=== PATIENT | female | born 1980 | race Caucasian/White ===

== ENCOUNTER 2017-04-05 15:33 | Emergency (ER) | payer MEDICAID ==
[2017-04-05 15:50] VITALS: BP 113/41; PULSE 72; RESP 18; TEMP 99.3; O2SAT 99
--- NOTE | 2017-04-05 16:14 | RAD ---
HISTORY: chest pain COMPARISON: Chest x-ray performed 12/26/15 TECHNIQUE: Chest PA and lateral FINDINGS: LUNGS: No focal consolidation. Please note that chest x-ray has limited sensitivity for the detection of pulmonary masses. PLEURA: No significant pleural effusion identified. No definite pneumothorax . CARDIOVASCULAR: The cardiomediastinal silhouette appears within normal limits of size. OSSEOUS STRUCTURES: No acute osseous abnormality identified. VISUALIZED UPPER ABDOMEN: Unremarkable. OTHER FINDINGS: None. IMPRESSION: No focal consolidation, significant pleural effusion, or definite pneumothorax identified.
--- NOTE | 2017-04-05 16:20 | C.PDOC ---
History Of Present Illness 36 y/o F c no PMHx p/w chest pain since last night. Describes as soreness in a focal area to the R parasternal area, pleuritic. She denies fever, cough, dyspnea, leg swelling, long travel, injury, nausea, vomiting. She had a similar pain and came to this ER in the past but never followed up. Time Seen by Provider: 04/05/17 15:44 Chief Complaint (Nursing): Chest Pain Past Medical History Vital Signs: Last Vital Signs Temp 99.3 F 04/05/17 15:38 Pulse 72 04/05/17 15:38 Resp 18 04/05/17 15:38 BP 113/41 L 04/05/17 15:38 Pulse Ox 99 04/05/17 16:24 Family History: States: Unknown Family Hx - Social History Hx Tobacco Use: Yes Hx Alcohol Use: Yes Hx Substance Use: No - Immunization History Hx Tetanus Toxoid Vaccination: No Hx Influenza Vaccination: Yes Hx Pneumococcal Vaccination: No Review Of Systems Except As Marked, All Systems Reviewed And Found Negative. Constitutional: Negative for: Fever Respiratory: Negative for: Shortness of Breath Physical Exam - Physical Exam Additional Physical Exam Comments: Constitutional: No acute distress. Head: Normocephalic. Atraumatic. Eyes: PERRL. ENT: Moist mucous membranes. Neck: Supple. Cardiovascular: Regular rate. Radial pulse 2+ bilaterally. Chest: Reproducible chest tenderness. Respiratory: Clear to auscultation bilaterally. GI: Soft. Nontender. Nondistended. Back: No CVA tenderness. Musculoskeletal: No tenderness or swelling of extremities. Skin: No rash. Neurologic: Alert, no focal deficit. ED Course And Treatment O2 Sat by Pulse Oximetry: 99 (RA) Pulse Ox Interpretation: Normal Medical Decision Making Medical Decision Making: EKG NSR 70 bpm, no ST/T wave changes, normal axis. CXR shows no pleural effusion, free air, infiltrate, or PTX. Discharged home, f/u PMD, return to ER for worsening pain, fever, dyspnea, or any other problem. Disposition - Disposition Disposition: HOME/ ROUTINE Disposition Time: 16:22 Condition: STABLE Prescriptions: Ibuprofen [Motrin] 1 tab PO Q6 #30 tab Instructions: Chest Wall Pain (ED) Forms: [employer] (T[place]isian) - Clinical Impression Clinical Impression: Pleuritic pain - Scribe Statement The provider has reviewed the documentation as recorded by the Daniel Solano All medical record entries made by the Daniel were at my direction and personally dictated by me. I have reviewed the chart and agree that the record accurately reflects my personal performance of the history, physical exam, medical decision making, and the department course for this patient. I have also personally directed, reviewed, and agree with the discharge instructions and disposition.
--- NOTE | 2017-04-09 18:22 | CARD ---
APPROVED REPORT EKG Measurement Heart [id number] <Conclusion> Normal sinus rhythm Normal ECG
== END 2017-04-05 16:39 | disposition home or self-care (01) ==
LOC: C.ER 15:33
DX: R07.81 Pleurodynia (principal)

== ENCOUNTER 2018-08-01 12:53 | Emergency (ER) | payer SELFPAY ==
[2018-08-01 13:19] VITALS: BMI 30.7
--- NOTE | 2018-08-01 14:24 | C.PDOC ---
History Of Present Illness 37 y/o female presents to ED with c/o sharp chest pain for "couple of days" and cough for 1 month. Patient denies recent travel, fever, chills, leg swelling or any other complaints at this time. Chief Complaint (Nursing): Chest Pain History/Exam Limitations: no limitations Onset/Duration Of Symptoms: Days Current Symptoms Are (Timing): Still Present Past Medical History Reviewed: Historical Data, Nursing Documentation, Vital Signs Vital Signs: Last Vital Signs Temp 98.5 F 08/01/18 13:18 Pulse 71 08/01/18 13:18 Resp 18 08/01/18 13:18 BP 120/79 08/01/18 13:18 Pulse Ox 97 08/01/18 13:18 - Medical History PMH: No Chronic Diseases Surgical History: No Surg Hx Family History: States: No Known Family Hx - Social History Hx Tobacco Use: Yes Hx Alcohol Use: No Hx Substance Use: No - Immunization History Hx Tetanus Toxoid Vaccination: No Hx Influenza Vaccination: No Hx Pneumococcal Vaccination: No Review Of Systems Constitutional: Negative for: Fever, Chills Cardiovascular: Positive for: Chest Pain. Negative for: Palpitations Respiratory: Positive for: Cough. Negative for: Shortness of Breath Gastrointestinal: Negative for: Nausea, Vomiting Skin: Negative for: Rash Physical Exam - Physical Exam Appears: Non-toxic, No Acute Distress Skin: Warm, Dry, No Rash Head: Atraumatic, Normacephalic Eye(s): bilateral: Normal Inspection Oral Mucosa: Moist Throat: Normal, No Erythema, No Exudate Neck: Normal ROM, Supple Cardiovascular: Rhythm Regular Respiratory: Normal Breath Sounds, No Rales, No Rhonchi, No Wheezing Gastrointestinal/Abdominal: Soft, No Tenderness, No Guarding, No Rebound Extremity: Normal ROM, No Pedal Edema, Capillary Refill (<2 seconds) Neurological/Psych: Oriented x3, Normal Speech, Normal Cognition ED Course And Treatment - Laboratory Results Result Diagrams: 08/01/18 15:03 08/01/18 15:03 O2 Sat by Pulse Oximetry: 97 (RA) Pulse Ox Interpretation: Normal Disposition - Disposition Referrals: [facility] Bernie Davila, [Non-Staff] - Disposition: HOME/ ROUTINE Disposition Time: 15:45 Condition: GOOD Additional Instructions: CYNDI XIONG, thank you for letting us take care of you today. The emergency medical care you received today was directed at your acute symptoms. If you were prescribed any medication, please fill it and take as directed. It may take several days for your symptoms to resolve. Return to the Emergency Department if your symptoms worsen, do not improve, or if you have any other problems. Please contact your doctor or call one of the physicians/clinics you have been referred to that are listed on the Patient Visit Information form that is included in your discharge packet. Bring any paperwork you were given at [facility] with you along with any medications you are taking to your follow up visit. Our treatment cannot replace ongoing medical care by a primary care provider outside of the emergency department. Thank you for allowing the [employer] team to be part of your care today. Follow up with your primary care doctor this week for re-evaluation and further management. Prescriptions: Azithromycin [Zithromax] 250 mg PO DAILY #6 tab Instructions: Pneumonia, Adult (DC) Forms: [employer] ([place]) - Clinical Impression Clinical Impression: Community acquired pneumonia - Scribe Statement The provider has reviewed the documentation as recorded by the Scribe Provider Attestation: Kasi Solano All medical record entries made by the Scribe were at my direction and personally dictated by me. I have reviewed the chart and agree that the record accurately reflects my personal performance of the history, physical exam, medical decision making, and the department course for this patient. I have also personally directed, reviewed, and agree with the discharge instructions and disposition.
[2018-08-01 15:10] LABS: BASO # 0.1 K/uL (0.0-0.2); EOS # 0.3 K/uL (0.0-0.7); EOS % 2.8 % (0.0-4.0); HEMOGLOBIN 14.3 g/dL (11.0-16.0); LYMPH # 2.7 K/uL (1.0-4.3); LYMPH % 28.5 % (20.0-40.0); MEAN CELL VOLUME 88.9 fL (81.0-99.0); MEAN CORPUSCULAR HEMOGLOBIN 30.3 pg (27.0-31.0); MEAN CORPUSCULAR HGB CONC 34.1 g/dL (33.0-37.0); MONO # 0.7 K/uL (0.0-0.8); MONO % 7.2 % (0.0-10.0); NEUT # 5.8 K/uL (1.8-7.0); NEUT % 60.5 % (50.0-75.0); RBC 4.72 Mil/uL (3.80-5.20); RED CELL DISTRIBUTION WIDTH 13.2 % (11.5-14.5); WHITE BLOOD COUNT 9.6 K/uL (4.8-10.8)
--- NOTE | 2018-08-01 15:17 | RAD ---
HISTORY: chest pain COMPARISON: Chest x-ray performed 04/05/17 TECHNIQUE: Chest, one view. FINDINGS: Examination limited by habitus. LUNGS: Subtle medial right lower lobe opacity may reflect pneumonia or atelectasis. Please note that chest x-ray has limited sensitivity for the detection of pulmonary masses. PLEURA: No significant pleural effusion identified. No definite pneumothorax . CARDIOVASCULAR: Heart size appears within normal limits. No significant atherosclerotic calcification present. OSSEOUS STRUCTURES: No acute osseous abnormality identified. VISUALIZED UPPER ABDOMEN: Unremarkable. OTHER FINDINGS: None. IMPRESSION: Subtle medial right lower lobe opacity may reflect pneumonia or atelectasis.
[2018-08-01 15:23] LABS: ALBUMIN 4.5 g/dL (3.5-5.0); BLOOD UREA NITROGEN 14 mg/dL (7-17); CALCIUM 8.6 mg/dl (8.6-10.4); GFR NON-AFRICAN AMERICAN > 60
[2018-08-01 15:24] LABS: ALB/GLOB RATIO 1.4 (1.0-2.1); ALT/SGPT 31 U/L (9-52); AST/SGOT 26 U/L (14-36)
[2018-08-01 16:04] VITALS: BP 127/87; PULSE 81; RESP 17; TEMP 98.9
[2018-08-01 17:01] VITALS: O2SAT 97
== END 2018-08-01 16:11 | disposition home or self-care (01) ==
LOC: C.ER 12:53
DX: J18.9 Pneumonia, unspecified organism (principal); Z72.0 Tobacco use
CPT/HCPCS: 71045; 80053; 84484; 85025; 85378; 93005; 96374; 99284; J1885

== ENCOUNTER 2018-08-12 13:26 | Emergency (ER) | payer OTHER ==
[2018-08-12 13:27] VITALS: BMI 30.7
[2018-08-12 14:15] VITALS: BP 100/60; PULSE 78; RESP 20; TEMP 98.5; O2SAT 97
--- NOTE | 2018-08-12 15:20 | C.PDOC ---
History Of Present Illness 37 year old female presents to the ED for evaluation of right ankle pain and swelling for 1 day. The patient reports she was walking last night when she twisted her ankle. Denies other injuries, numbness, tingling, and any other associated symptoms. Time Seen by Provider: 08/12/18 14:14 Chief Complaint (Nursing): Lower Extremity Problem/Injury History Per: Patient History/Exam Limitations: no limitations Onset/Duration Of Symptoms: Hrs Current Symptoms Are (Timing): Still Present Past Medical History Reviewed: Historical Data, Nursing Documentation, Vital Signs Vital Signs: Last Vital Signs Temp 98.5 F 08/12/18 13:55 Pulse 78 08/12/18 13:55 Resp 20 08/12/18 13:55 BP 100/60 08/12/18 13:55 Pulse Ox 97 08/12/18 13:55 Family History: States: Unknown Family Hx - Social History Hx Tobacco Use: Yes Hx Alcohol Use: No Hx Substance Use: No - Immunization History Hx Tetanus Toxoid Vaccination: No Hx Influenza Vaccination: No Hx Pneumococcal Vaccination: No Review Of Systems Except As Marked, All Systems Reviewed And Found Negative. Musculoskeletal: Positive for: Other (right ankle pain. ) Physical Exam - Physical Exam Appears: Well, Non-toxic Skin: Normal Color, Warm, Dry Head: Atraumatic, Normacephalic Eye(s): bilateral: Normal Inspection, PERRL, EOMI Neck: Normal ROM, Supple Extremity: Tenderness (to the right lateral malleolus.), No Calf Tenderness, No Deformity, Swelling (to the right lateral malleolus. ), No Other (no other joint involvement. ) Pulses: Left Dorsalis Pedis: Normal, Right Dorsalis Pedis: Normal Neurological/Psych: Oriented x3, Normal Speech, Normal Motor, Normal Sensation ED Course And Treatment O2 Sat by Pulse Oximetry: 97 (RA) Pulse Ox Interpretation: Normal Medical Decision Making Medical Decision Making: Progress/Update: Preliminary reading non-displaced distal fibula fracture Grip Boss splint applied. Patient advised to follow up with Dr. Williamson within 2 days. Disposition Counseled Patient/Family Regarding: Studies Performed, Diagnosis, Need For Followup, Rx Given - Disposition Referrals: Dennis Williamson MD [Staff Provider] - Disposition: HOME/ ROUTINE Disposition Time: 15:19 Condition: STABLE Additional Instructions: follow up with orthopaedic within 2 days call to make an appointment take medications as prescribed return to ER if symptoms worsens or progress Prescriptions: Acetaminophen/Codeine [Tylenol/Codeine 300 MG/30 MG] 1 tab PO Q6H PRN #12 tab PRN Reason: Pain, Severe (8-10) Naproxen [Naprosyn] 500 mg PO BID PRN #16 tab PRN Reason: Pain, Moderate (4-7) Instructions: Fibula Fracture (DC) Forms: General Discharge Instructions, [facility] (Citizen Of [place]), Work Excuse - Clinical Impression Clinical Impression: Fibula fracture - Scribe Statement The provider has reviewed the documentation as recorded by the Scribe (Anaya Mathew) Provider Attestation: All medical record entries made by the Scribe were at my direction and perso shannan dictated by me. I have reviewed the chart and agree that the record accurately reflects my personal performance of the history, physical exam, medical decision making, and the department course for this patient. I have also personally directed, reviewed, and agree with the discharge instructions and disposition.
--- NOTE | 2018-08-12 16:22 | RAD ---
Date of service: 08/12/2018 PROCEDURE: Right Ankle Radiographs. HISTORY: twist of ankl COMPARISON: None available. FINDINGS: BONES: Minimally displaced oblique distal fibular fracture. No other fracture identified. JOINTS: Normal. No osteoarthritis. Ankle mortise maintained. Talar dome intact SOFT TISSUES: Lateral soft tissue swelling OTHER FINDINGS: None. IMPRESSION: Oblique minimally displaced distal fibular fracture.
== END 2018-08-12 16:09 | disposition home or self-care (01) ==
LOC: C.ER 13:26
DX: S82.831A Other fracture of upper and lower end of right fibula, initial encounter for closed fracture (principal); X50.1XXA Overexertion from prolonged static or awkward postures, initial encounter; Y93.01 Activity, walking, marching and hiking; Z72.0 Tobacco use